=== PATIENT | male | born 1990 | race Caucasian/White ===

== ENCOUNTER 2019-06-09 14:17 | Emergency (ER) | payer SELFPAY ==
[2019-06-09 14:30] VITALS: BP 144/88; PULSE 109; RESP 19; TEMP 36.7; O2SAT 100
--- NOTE | 2019-06-09 14:45 | ED.NAVMDI ---
HPI - Nausea/Vomiting/Diarrhea General Chief complaint: Nausea/Vomiting/Diarrhea Stated complaint: N/V BODY ACHES Time Seen by Provider: 06/09/19 14:23 Source: patient Mode of arrival: ambulatory Limitations: no limitations History of Present Illness HPI Narrative: A 29 y/o male pt presents to the ED, with c/o N/V/D since this morning. Pt notes emesis x 1, and diarrhea x 5 that she describes as watery stool. He reports having a near syncopal episode this morning. Pt notes myalgias and chills, but denies measured fever or CP. He reports a PMHx of DM and states that he is compliant with his medication. His last blood glucose result was 99 today and he denies eating anything today. Pt states that his daughter with sick with similar Sx over the last couple of days. He denies smoking hx and states that he drinks 1-2x a week. MD elicited complaint: nausea, vomiting and diarrhea Onset (ago): hour(s) Description of diarrhea: watery Associated nausea: Yes Context: sick contacts (daughter sick with similar Sx) Associated symptoms: myalgias, nausea/vomiting and other (diarrhea, chills) Related Data Home Medications Medication Instructions Recorded Confirmed insulin glargine [Lantus U-100 SUBCUT 06/09/19 Insulin] insulin lispro [Humalog U-100 06/09/19 Insulin] Allergies Allergy/AdvReac Type Severity Reaction Status Date / Time No Known Allergies Allergy Verified 06/09/19 14:34 Review of Systems Review of Systems: All systems reviewed & are unremarkable except as noted in HPI and below Constitutional: Constitutional: Reports chills and Denies fever(s) Cardiovascular: Cardiovascular: Denies chest pain Gastrointestinal: Gastrointestinal: Reports diarrhea (x5, watery), Reports nausea and Reports vomiting (x1) Musculoskeletal: Musculoskeletal: Reports myalgias PMFSH Past Medical History Medical History (Updated 06/09/19 @ 16:45 by Yoandy Whyte MD) Diabetes mellitus Surgical History Surgical History (Updated 06/09/19 @ 15:53 by AMANDEEP Kumar) Surgical history unknown Social History Social History (Updated 06/09/19 @ 15:55 by AMANDEEP Kumar) Smoking status: Never smoker Alcohol intake: current Alcohol use details: 1-2 x per week Gender identity (if verbalized by the patient): Male Exam Narrative: Exam Narrative: General appearance: Well-developed, well-nourished Skin: Normal color Head: Normocephalic, nontraumatic Eyes: Clear conjunctiva ENT: Oropharynx normal, ears normal, nose normal Neck: Supple, nontender Chest and respiratory: Airway patent, no respiratory distress, no accessory muscle use Heart: Regular rate/rhythm Abdomen: Soft, nontender, no organomegaly, quiet bowel sounds Vascular: Normal peripheral pulses, normal capillary refill. Musculoskeletal: Normal range of motion, nontender back Neurologic: Alert and oriented ?3, [employer] is normal as tested, no gross motor deficit Course Course Emergency Course: Improving Vital Signs Vital signs: Vital Signs Temperature 36.7 C 06/09/19 14:30 Pulse Rate 109 H 06/09/19 14:30 Respiratory Rate 19 06/09/19 14:30 Blood Pressure 144/88 H 06/09/19 14:30 Pulse Oximetry 100 06/09/19 14:30 Temperature 37.8 C H 06/09/19 17:33 Pulse Rate 109 H 06/09/19 14:30 Respiratory Rate 19 06/09/19 14:30 Blood Pressure 144/88 H 06/09/19 14:30 Pulse Oximetry 100 06/09/19 14:30 MDM - Nausea/Vomiting/Diarrhea MDM Narrative Medical decision making narrative: My concern is the differential diagnosis below. Labs, IV fluids, IV Zofran ordered. Further plan to follow. Patient's daughter had similar symptoms 2 days ago. Viral cyrus
[2019-06-09 15:04] LABS: Basophils Percent Auto 0.3 % (0.2-1.2); Eosinophils Percent Auto 0.2 % (0-4.4); Hemoglobin 17.1 g/dL (14.0-18.0); Immature Granulocyte Absolute 0.04 K/mm3 (0.00-0.031); Immature Granulocyte Percent A 0.3 % (0-0.5); Lymphocytes Absolute Auto 0.25 K/mm3 (0.9-3.2); Lymphocytes Percent Auto 1.9 % (18.3-44.2); Mean Corpuscular HGB Conc 33.5 g/dl (32-36); Mean Corpuscular Hemoglobin 31.3 pg (26-34); Mean Corpuscular Volume 93.4 fl (80-100); Mean Platelet Volume 9.9 fl (7.4-10.4); Monocytes Absolute Auto 0.6 K/mm3 (0.1-0.6); Monocytes Percent Auto 4.3 % (2.6-8.5); Neutrophils Absolute Auto 12.3 K/mm3 (1.3-6.7); Platelet Count Result 308 k/mm3 (150-375); Red Blood Count 5.46 M/mm3 (4.6-6.20); Red Cell Distribution Width 11.9 % (11.5-14.5); White Blood Count 13.2 K/mm3 (4.5-10.0)
[2019-06-09 15:17] LABS: Alanine Aminotransferase 29 U/L (4-50); Albumin Level 4.8 g/dL (3.5-5.1); Alkaline Phosphatase 114 U/L (38-126); Aspartate Amino Transferase 27 U/L (17-59); Bilirubin,Total 0.7 mg/dL (0.2-1.3); Blood Urea Nitrogen 17 mg/dL (9-20); Calcium 9.5 mg/dL (8.4-10.2); Carbon Dioxide 24 mmol/L (22-30); Chloride 103 mmol/L (98-107); Estimated Glomerular Filt Rate > 60; Glucose 164 mg/dL (75-110); Lipase 13 U/L (23-300); Potassium 4.2 mmol/L (3.4-5.0); Sodium 135 mmol/L (137-145)
[2019-06-09] MEDS: SODIUM CHLORIDE 0.9% IV 1,000 ML 999 ML IV CONT ×2 (15:39→15:43)
[2019-06-09] MEDS: ONDANSETRON INJ 4 MG/2 ML VIAL IV PUSH (15:39)
--- NOTE | 2019-06-09 16:21 | PC.NURSE ---
Half of the patients' fluids have infused; pt states his nausea is gone. Water given po.
[2019-06-09 16:48] LABS: Add Urine Microscopic? YES; Appearance Urine Clear (Clear); Bilirubin Urine Negative (Negative); Blood Urine Negative (Negative); Color Urine Yellow (Yellow); Glucose Urine UA 1+ mg/dL (Negative); Ketones Urine 2+ mg/dL (Negative); Leukocyte Esterase Ur Negative LEU/UL (Negative); Mucus Urine Moderate /lpf; Nitrate Urine Negative (Negative); Protein Urine 1+ mg/dL (Negative); RBC Urine 0-2 /hpf (0-2); Squamous Epithelial Cell Urine Rare /hpf (Few); Urobilinogen Urine Negative mg/dL (<2.0); WBC Urine 0-3 /hpf
[2019-06-09 17:33] VITALS: TEMP 37.8
[2019-06-09 17:33] LABS: Glucose Point of Care 100 (65-105)
[2019-06-09 18:00] VITALS: BP 115/68; PULSE 110; RESP 16; O2SAT 99
== END 2019-06-09 18:05 | disposition home or self-care (01) ==
PROVIDERS: Emergency Provider Emergency Medicine; PCP Internal Medicine
DX: K52.9 Noninfective gastroenteritis and colitis, unspecified (principal); E11.9 Type 2 diabetes mellitus without complications; Z79.4 Long term (current) use of insulin
CPT/HCPCS: 36415; 80053; 81001; 82948; 83690; 85025; 96361; 96374; 99284; J2405; J7030